=== PATIENT | female | born 1945 | race Hispanic/Latino ===

== ENCOUNTER → 2019-11-06 | Outpatient (CLI) | payer OTHER ==
[~2019-11-06] MED LIST: ASPI-555 PO; LEVO100T12 PO; LISI10TA7 PO
== END | disposition home or self-care (01) ==
LOC: RAH 07:53
PROVIDERS: ATTEND Internal Medicine
DX: N28.1 Cyst of kidney, acquired (principal); R10.11 Right upper quadrant pain
CPT/HCPCS: 76700

== ENCOUNTER → 2021-03-21 | Outpatient (CLI) | payer OTHER ==
[~2021-03-21] MED LIST changes: -ASPI-555 PO; +ASPI-556 PO; +LISI10TA24 PO; -LISI10TA7 PO
== END | disposition home or self-care (01) ==
LOC: RAH 15:39
PROVIDERS: ATTEND Internal Medicine
DX: R63.4 Abnormal weight loss (principal)
CPT/HCPCS: 71046

== ENCOUNTER 2023-02-01 12:18 | Emergency (ER) | payer OTHER ==
[~2023-02-01] VITALS: Ht 162.6 cm; Wt 56.7 kg
[2023-02-01 12:22] VITALS: BP 151/91
[2023-02-01 12:43] LABS: HEMATOCRIT 44.1 % (36-48); MEAN CORPUSCULAR HEMOGLOBIN 29.2 pg (27.0-33.0); MEAN CORPUSCULAR HGB CONC 32.4 g/dL (32.0-36.0); MEAN CORPUSCULAR VOLUME 90.2 fL (79-99); RED BLOOD CELL COUNT(AUTO) 4.89 MIL/uL (4.00-5.50); RED CELL DISTRIBUTION WIDTH 13.2 % (11.0-15.5)
[2023-02-01 12:49] LABS: CARBON DIOXIDE 31 mmol/L (21-32); CHLORIDE 105 mmol/L (101-111); CREATININE 0.7 mg/dL (0.5-1.5); GLOMERULAR FILTR. RATE CALC 89 mL/min (>90); GLUCOSE,RANDOM 114 mg/dL (70-105); SODIUM SERUM 142 mmol/L (136-145); UREA NITROGEN, BLOOD 18 mg/dL (7-18)
[2023-02-01 12:54] LABS: ALANINE AMINOTRANSFERASE 19 U/L (12-78); ALBUMIN 4.1 g/dL (3.5-5.0); ASPARTATE AMINOTRANSFERASE 19 U/L (10-37); TOTAL PROTEIN, SERUM 8.2 g/dL (6.0-8.3)
[2023-02-01] MEDS ORDERED: METOCLOPRAMIDE 10 MG TABLET PO ONE (14:00)
[2023-02-01 14:13] LABS: APPEARANCE,URINE CLEAR (CLEAR); BILIRUBIN,URINE NEGATIVE (NEGATIVE); COLOR,URINE COLORLESS (YELLOW); GLUCOSE, URINE (UA) NEGATIVE (NEGATIVE); KETONES,URINE NEGATIVE (NEGATIVE); LEUKOCYTE ESTERASE ,URINE 75 Leu/uL (NEGATIVE); NITRATE,URINE NEGATIVE (NEGATIVE); OCCULT BLOOD,URINE NEGATIVE (NEGATIVE); PROTEIN,URINE NEGATIVE (NEGATIVE); UROBILINOGEN,URINE 0.2 mg/dL (0.2-1.0)
[2023-02-01 14:18] LABS: BACTERIA,URINE RARE /HPF (None Seen); RBC,URINE 0-1 /HPF (0-1); SQUAMOUS EPITHELIAL CELL,UR RARE /HPF (0-2)
[2023-02-01] MEDS ORDERED: METO-296 PO (14:56)
== END 2023-02-01 15:57 | disposition home or self-care (01) ==
LOC: EDH 12:18
DX: K21.00 Gastro-esophageal reflux disease with esophagitis, without bleeding (principal); Z88.0 Allergy status to penicillin; Z88.8 Allergy status to other drugs, medicaments and biological substances; Z79.899 Other long term (current) drug therapy; Z90.710 Acquired absence of both cervix and uterus; Z90.49 Acquired absence of other specified parts of digestive tract
CPT/HCPCS: 36415; 80053; 81001; 83690; 84484; 85027; 87088; 93005

== ENCOUNTER → 2023-10-03 | Outpatient (CLI) | payer OTHER ==
[~2023-10-03] MED LIST changes: +METO-296 PO
== END | disposition home or self-care (01) ==
LOC: RAH 11:02
PROVIDERS: ATTEND Internal Medicine
DX: R07.81 Pleurodynia (principal)
CPT/HCPCS: 71046

== ENCOUNTER → 2024-03-10 | Outpatient (CLI) | payer OTHER | END | disposition home or self-care (01) | LOC: RAH 15:42 | PROVIDERS: ATTEND Internal Medicine | DX: M25.562 Pain in left knee (principal) | CPT/HCPCS: 73562 ==